=== PATIENT | female | born 1955 | race Caucasian/White ===

== ENCOUNTER 2024-04-12 00:16 | Day surgery (SDC) | payer BC, SELFPAY ==
[2024-03-28 08:35] VITALS: BMI 35.6
[2024-04-12 07:52] VITALS: BP 122/55; PULSE 61; RESP 18; TEMP 36.1; O2SAT 99
[2024-04-12] MEDS: LACTATED RINGERS 1,000 ML 150 ML IV CONT (08:03)
[2024-04-12 08:18] LABS: Glucose Point of Care 121 mg/dl (65-105)
--- NOTE | 2024-04-12 08:30 | PM.HPGS ---
History of Present Illness History of Present Illness Consent: Risks, benefits, and alternatives have been discussed and questions answered. Patient agrees to proceed with procedure. Chief complaint: colon screening Narrative: Estrella Garcia is a 68 year old female here for screening colonoscopy, last one almost 20 years ago Review of Systems Review of Systems: All systems reviewed & are unremarkable except as noted in HPI and below PMFSH Past Medical History Medical History (Updated 04/12/24 @ 08:32 by Reno Max MD) Colon cancer screening Social History Social History Smoking status: Never smoker Alcohol intake: never Substance use: never Substance use type: does not use Living arrangements: with family Spiritual care concerns: No Meds Home Medications and Allergies Home Medications ?Medication ?Instructions ?Recorded ?Confirmed ?Type atenolol 50 mg tablet 50 mg PO Q12H 03/28/24 04/12/24 History atorvastatin 80 mg tablet 80 mg PO QPM 03/28/24 04/12/24 History dapagliflozin propanediol 10 mg 10 mg PO DAILY 03/28/24 04/12/24 History tablet (Farxiga) fenofibrate micronized 134 mg 134 mg PO QPM 03/28/24 04/12/24 History capsule glimepiride 4 mg tablet 4 mg PO BID 03/28/24 04/12/24 History insulin degludec 200 unit/mL (3 20 unit subcut HS 03/28/24 04/12/24 History mL) subcutaneous pen (Tresiba FlexTouch U-200 insulin) lisinopril 40 mg tablet 40 mg PO DAILY 03/28/24 04/12/24 History metformin 500 mg tablet,extended 1,000 mg PO BID 03/28/24 04/12/24 History release 24 hr Allergies Allergy/AdvReac Type Severity Reaction Status Date / Time No Known Allergies Allergy Verified 04/12/24 07:47 Vital Signs Vital Signs - 24 hr 04/12/24 07:52 Temperature 97 F L Pulse Rate 61 Respiratory Rate 18 Blood Pressure 122/55 L Pulse Oximetry 99 Oxygen Delivery Room Air Exam Const: General: comfortable and no acute distress HENMT: Face/Nose/Sinus: Normal nares present Eyes: General: appearance normal, both eyes and all related structures Neck: Neck: no JVD Resp: Auscultation: clear to auscultation bilaterally Cardio: Rate: regular rate Rhythm: regular rhythm GI: Inspection: non-distended GI Palp: Yes Soft to palpation Skin: General skin exam: normal color Neuro: General: gait normal Speech: normal speech Extrem: General: normal to inspection Psych: Mental Status: mental status grossly normal Assessment and Plan Assessment and plan (1) Colon cancer screening: Code(s): Z12.11 - Encounter for screening for malignant neoplasm of colon Status: Acute Assessment and Plan: colonoscopy
--- NOTE | 2024-04-12 08:35 | WPDANESEPPF ---
Anes - Initial Pre Proc Eval Procedure: Operation Date: 04/12/24 09:00 Proposed Procedures p Colonoscopy - Reno Max MD Date/Time: 04/12/24 08:35 Surgeon: Reno Max MD Pre Op Diagnosis: colon screening Patient Data Age: 68 Gender: F Height: 1.65 m Weight: 96.2 kg Last Vital Signs Temp 97 F L 04/12/24 07:52 Pulse 61 04/12/24 07:52 Resp 18 04/12/24 07:52 BP 122/55 L 04/12/24 07:52 Pulse Ox 99 04/12/24 07:52 O2 Del Method Room Air 04/12/24 07:52 Allergies Allergy/AdvReac Type Severity Reaction Status Date / Time No Known Allergies Allergy Verified 04/12/24 07:47 Home Medications ?Medication ?Instructions ?Recorded ?Confirmed ?Type atenolol 50 mg tablet 50 mg PO Q12H 03/28/24 04/12/24 History atorvastatin 80 mg tablet 80 mg PO QPM 03/28/24 04/12/24 History dapagliflozin propanediol 10 mg 10 mg PO DAILY 03/28/24 04/12/24 History tablet (Farxiga) fenofibrate micronized 134 mg 134 mg PO QPM 03/28/24 04/12/24 History capsule glimepiride 4 mg tablet 4 mg PO BID 03/28/24 04/12/24 History insulin degludec 200 unit/mL (3 20 unit subcut HS 03/28/24 04/12/24 History mL) subcutaneous pen (Tresiba FlexTouch U-200 insulin) lisinopril 40 mg tablet 40 mg PO DAILY 03/28/24 04/12/24 History metformin 500 mg tablet,extended 1,000 mg PO BID 03/28/24 04/12/24 History release 24 hr Laboratory Tests 04/12/24 08:15 POC Capillary Glucose 121 H mg/dl (65-105) Patient hx anesthesia problems: none Family hx anesthesia problems: none Results Review: All pre-operative results and documents have been reviewed as part of the pre-operative evaluation. [facility] Past Medical History Medical History Colon cancer screening Social History Social History Smoking status: Never smoker Alcohol intake: never Substance use: never Substance use type: does not use Living arrangements: with family Spiritual care concerns: No Anes - Eval Final PreProcedure Day of Procedure 04/12/24 08:35 Patient weight: obese Lungs: normal air movement Airway: Mallampati scale class II and special considerations (Upper dentures. ) Neurological: alert and oriented Last oral intake: >/= 8 hours ASA classification: III Emergent: no Anesthetic plan: proceed Anesthesia type and monitoring: general GIVS and standard monitoring Results Review: All pre-operative results and documents have been reviewed as part of the pre-operative evaluation. HTN, hyperlipidemia, DM fsbs 121. Informed Consent: The patient's anesthetic plan and its attendant risks and benefits were discussed with the patient/family/POA. Questions were solicited and answers provided to the satisfaction of the patient/family/POA.
[2024-04-12 09:01] VITALS: BP 113/62; PULSE 62; RESP 18; O2SAT 97
[2024-04-12 09:09] LABS: Glucose Point of Care 119 mg/dl (65-105)
[2024-04-12 09:11] VITALS: BP 112/71; PULSE 53; RESP 18; O2SAT 100
[2024-04-12 09:21] VITALS: BP 125/63; PULSE 52; RESP 18; O2SAT 100
== END 2024-04-12 09:30 | disposition home or self-care (01) ==
PROVIDERS: PCP Internal Medicine; Referring Provider Internal Medicine; Visit Provider Internal Medicine Gastroenterology
PROC: 0DJD8ZZ Inspection of Lower Intestinal Tract, Via Natural or Artificial Opening Endoscopic (ICD-10-PCS; CPT 45378; principal; 2024-04-12 09:00)
DX: Z12.11 Encounter for screening for malignant neoplasm of colon (principal); D12.2 Benign neoplasm of ascending colon; Z79.84 Long term (current) use of oral hypoglycemic drugs; Z79.4 Long term (current) use of insulin; E66.9 Obesity, unspecified; Z68.35 Body mass index [BMI] 35.0-35.9, adult
CPT/HCPCS: 45385; 82948; 88305; J2003; J2704; J7120